=== PATIENT | male | born 1970 | race Caucasian/White ===

== ENCOUNTER 2020-05-17 12:16 | Emergency (ER) | payer OTHER ==
[~2020-05-17] VITALS: Ht 175.3 cm; Wt 127.6 kg
[2020-05-17] MEDS ORDERED: NEURONTIN100 MG (12:40)
[2020-05-17] MEDS ORDERED: DULOXETINE HCL30 MG PO (12:41)
[2020-05-17] MEDS ORDERED: PROPRANOLOL HCL10 MG PO (12:41)
== END 2020-05-17 15:08 | disposition home or self-care (01) ==
LOC: ED 12:16
DX: N20.1 Calculus of ureter (principal); Z87.442 Personal history of urinary calculi; Z88.8 Allergy status to other drugs, medicaments and biological substances; Z88.5 Allergy status to narcotic agent; Z79.899 Other long term (current) drug therapy
CPT/HCPCS: 80053; 81001; 85025; 96374; 96375; 96376; 99284-25; J1885; J2405